=== PATIENT | female | born 2005 | race Caucasian/White ===

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

== ENCOUNTER 2025-01-26 11:30 | Outpatient (CLI) | payer OTHER, SELFPAY | END 2025-01-26 11:31 | disposition home or self-care (01) | LOC: NFLDREF 01-28 15:25 | PROVIDERS: PCP Family Medicine; Referring Provider Family Medicine; Visit Provider Obstetrics & Gynecology | DX: Z34.93 Encounter for supervision of normal pregnancy, unspecified, third trimester (principal) | CPT/HCPCS: 87081; 87653 ==

== ENCOUNTER 2025-01-27 17:23 | Outpatient (CLI) | payer OTHER, SELFPAY ==
[2025-01-27 17:43] VITALS: BP 120/80; PULSE 101
--- NOTE | 2025-01-27 18:39 | PC.OBNST ---
NST Note NST Note Start: 01/27/25 17:26 Freq: ONCE Status: Active Protocol: Document 01/27/25 18:38 POT (Rec: 01/27/25 18:39 POT No Response) NST Note 1 Para (# of births) 0 EDC 02/21/25 Gestational Age In 36 Weeks & 3 Days Weeks & Days Patient Presented Decreased movement with Complaint(s) of Reactive Yes RN Tad Chin RN Date 01/27/25 Reactive Yes URSULA Hernandez RN Date 01/27/25 OB NST charge Yes Complete NST Note Yes via Write Note The provider's electronic signature indicates the NST is reactive/appropriate for gestational age. *Note to provider: If an addendum is required, open the patient's chart and click on the note under the Nurse/Allied Health tab.
== END 2025-01-27 18:35 | disposition home or self-care (01) ==
LOC: OB OUT 17:24 → OB 17:25
PROVIDERS: PCP Family Medicine; Visit Provider Obstetrics & Gynecology
DX: O36.8130 Decreased fetal movements, third trimester, not applicable or unspecified (principal); Z3A.36 36 weeks gestation of pregnancy
CPT/HCPCS: 59025; G0463

== ENCOUNTER 2025-01-31 12:42 | Outpatient (CLI) | payer OTHER, SELFPAY ==
--- NOTE | 2025-01-31 13:00 | CRLHL7_ITS ---
For Patients: As a result of the Cures Act, medical imaging exams and procedure reports are released immediately into your electronic medical record. You may view this report before your referring provider. If you have questions, please contact your health care provider. OB ULTRASOUND INDICATION: Obesity. FLOYD by LMP: 02/21/2025. GA: 37 w, 0 d. Single. COMPARISON: US 12/28/2024. TECHNIQUE: Real time brooks scale imaging of the fetus was performed. Transabdominal imaging performed. CERVIX: Not visualized. POSITIONING: Vertex. AMNIOTIC FLUID: 4.9 cm. SDP (N: greater than 2 x 1 cm). BIOPHYSICAL PROFILE: Gross body movements: 2. tone: 2. Respiratory activity: 2. Amniotic fluid: 2. SDP (N: greater than 2 x 1 cm) Total score: 8. PLACENTA: Technique: Transabdominal. PLACENTA POSITION: Anterior. DOPPLER: heart rate: 123 bpm. IMPRESSION: Normal biophysical profile 12/03. Beck Contreras M.D. Diagnostic Radiologist [email or web address] [place]/Dictated by: Beck Contreras MD @ 01/31/2025 8:33:00 PM (Electronically Signed)
== END 2025-01-31 12:43 | disposition home or self-care (01) ==
LOC: US 12:43
PROVIDERS: PCP Family Medicine; Visit Provider Obstetrics & Gynecology
DX: O99.213 Obesity complicating pregnancy, third trimester (principal); Z3A.37 37 weeks gestation of pregnancy
CPT/HCPCS: 76819

== ENCOUNTER 2025-02-07 12:46 | Outpatient (CLI) | payer OTHER, SELFPAY ==
--- NOTE | 2025-02-07 13:00 | CRLHL7_ITS ---
For Patients: As a result of the Century Cures Act, medical imaging exams and procedure reports are released immediately into your electronic medical record. You may view this report before your referring provider. If you have questions, please contact your health care provider. LMP: 05/17/2024. FLOYD by LMP: 02/21/2025. GA: 38w, 0d. Single. Comparison: 01/31/2025, 12/28/2024. INDICATION: Obesity. CERVIX: Not visualized. POSITIONING: Vertex. AMNIOTIC FLUID: 5.9 cm SDP. BIOPHYSICAL PROFILE: Total score: 8. Gross body movements: 2. tone: 2. Respiratory activity: 2. Amniotic fluid: 2. (SDP N: Increase 2 x 1 cm) PLACENTA: Technique: Transabdominal. PLACENTA POSITION: Anterior. heart rate: 144 bpm. Umbilical artery: IMPRESSION: Normal biophysical profile 12/03. Beck Contreras M.D. Diagnostic Radiologist [email or web address] bM/Dictated by: Beck Contreras MD @ 02/07/2025 8:54:00 PM (Electronically Signed)
== END 2025-02-07 12:47 | disposition home or self-care (01) ==
LOC: US 12:46
PROVIDERS: PCP Family Medicine; Visit Provider Obstetrics & Gynecology
DX: O99.213 Obesity complicating pregnancy, third trimester (principal); Z3A.38 38 weeks gestation of pregnancy
CPT/HCPCS: 76819

== ENCOUNTER 2025-02-14 12:49 | Outpatient (CLI) | payer OTHER, SELFPAY ==
--- NOTE | 2025-02-14 13:00 | CRLHL7_ITS ---
For Patients: As a result of the Cures Act, medical imaging exams and procedure reports are released immediately into your electronic medical record. You may view this report before your referring provider. If you have questions, please contact your health care provider. OB ULTRASOUND FLOYD by LMP: 02/21/2025. GA: 39 w, 0 d. Single. INDICATION: Obesity. TECHNIQUE: Real time grayscale imaging of the fetus was performed. Transabdominal. CERVIX: Not visualized. POSITIONING: Vertex. AMNIOTIC FLUID: 5.0 cm. SDP (N: greater than 2 x 1 cm) BIOPHYSICAL PROFILE: 2: Gross body movements 2: tone 2: Respiratory activity 2: Amniotic fluid SDP (N: greater than 2 x 1 cm) 8/8: Total score PLACENTA: Technique: Transabdominal. PLACENTA POSITION: Anterior. DOPPLER: heart rate: 139 bpm. IMPRESSION: Normal biophysical profile score 8/8. Beck Contreras M.D. Diagnostic Radiologist [email or web address] [place]/Dictated by: Beck Contreras MD @ 02/14/2025 5:58:00 PM (Electronically Signed)
== END 2025-02-14 12:50 | disposition home or self-care (01) ==
LOC: US 12:50
PROVIDERS: PCP Family Medicine; Visit Provider Obstetrics & Gynecology
DX: O99.213 Obesity complicating pregnancy, third trimester (principal); Z3A.39 39 weeks gestation of pregnancy
CPT/HCPCS: 76819

== ENCOUNTER 2025-02-21 12:47 | Outpatient (CLI) | payer OTHER, SELFPAY ==
--- NOTE | 2025-02-21 13:00 | CRLHL7_ITS ---
For Patients: As a result of the Century Cures Act, medical imaging exams and procedure reports are released immediately into your electronic medical record. You may view this report before your referring provider. If you have questions, please contact your health care provider. FLOYD by LMP: 02/21/2025. GA: 40w, 0d. INDICATION: Obesity. CERVIX: Not visualized. POSITIONING: Vertex. AMNIOTIC FLUID: 5.8 cm SDP. BIOPHYSICAL PROFILE: Total score: 8. Gross body movements: 2. tone: 2. Respiratory activity: 2. Amniotic fluid: 2. (SDP N: Increase 2 x 1 cm) PLACENTA: Technique: Transabdominal. PLACENTA POSITION: Anterior. DOPPLER: heart rate: 157 bpm. IMPRESSION: Normal biophysical profile 12/03. Beck Contreras M.D. Diagnostic Radiologist [email or web address] bM/Dictated by: Beck Contreras MD @ 02/21/2025 4:02:00 PM (Electronically Signed)
== END 2025-02-21 12:48 | disposition home or self-care (01) ==
LOC: US 12:47
PROVIDERS: PCP Family Medicine; Visit Provider Obstetrics & Gynecology
DX: O99.213 Obesity complicating pregnancy, third trimester (principal); Z3A.40 40 weeks gestation of pregnancy
CPT/HCPCS: 76819

== ENCOUNTER 2025-02-24 19:12 | Inpatient (IN) | payer OTHER, SELFPAY ==
[2025-02-24 19:41] VITALS: BP 133/79; PULSE 115
[2025-02-24 19:42] VITALS: PULSE 117; O2SAT 97
[2025-02-24 19:53] VITALS: BMI 44.1
[2025-02-24 20:08] VITALS: RESP 16; TEMP 36.8
[2025-02-24 20:11] VITALS: PULSE 104; O2SAT 98
--- NOTE | 2025-02-24 21:41 | W.PM.LDBA ---
Subjective History of Present Illness Time Seen by Provider: 21:42 Date Seen: 02/24/25 Narrative: Patient is being admitted to Labor and Delivery for elective induction. She is a 19 year old at 40.3 weeks gestation. Her full history and physical was dictated by Dr. Daley on 01/31/25. Please see this for details. Active movement. Denies LOF, vaginal bleeding or abnormal vaginal discharge. Having more frequent contractions. Specific Issues/Plans Partner: Tavares Baby: Girl! Zee Black H&P: 01/31 # obesity, BMI 38.9 Hemoglobin A1c: 5.0% Aspirin 81 mg Weekly testing starting at 37 weeks 32 wk growth: EFW 89%ile, see below. # Tachycardia and palpitations - EKG 12/13 sinus tach - TSH normal, 1.08 [x] Zio is primarily NSR, sinus tachycardia and a single 8 beat run of SVT. [ ] Cardiology referral if recurrent Sx # Hep B nonimmune: low risk. Booster # Rh neg - Fetus RH positive Rhogam @ 28 weeks = 11/29/24 #Suspected macrosomia EFW >97% on FAS at 22 weeks, dated by LMP c/w 8 week US [x] 12/28: EFW 89%ile, see below. # Anemia at 28 weeks, with Hb 10.6 Recommended iron supplementation QOD Hb 11.5 on 01/10 Imaging: - FAS on 10/18: Normal visualized anatomy. EFW 593g at >97%ile - BPD 96%, HC 69%m, AC 91%, FL 73%. MVP 7.5cm. Cephalic. Anterior placenta, no previa. 3 vessel cord, central insertion. Cx 4.2cm. f/u formal radiology read. - 12/28: EFW 2292g at 89%ile - BPD 97%, HC 66%, AC 93%, FL 63%. MVP 7.5cm. Vertex, FHR 139bpm. Vaccinations: COVID:Declines Flu: N/A Tdap: 12/13/24 RSV: Offer at visit on 01/10/25. Declined. 32 week mental health: 12/28/24 Last pap: n/a OB - Problem Based A/P Additional Plan (1) Encounter for induction of labor: Status: Acute Plan - Patient requested misoprostol for cervical ripening. Will do 25 mcg misoprostol per protocol - Janneth is hoping to have an unmedicated - NST: 130 bpm, moderate variability, + accel, - decels - [place]: [id number] OB Exam Physical Exam Vital signs: Temp Pulse Resp BP Pulse Ox 98.2 F 115 H 16 133/79 98 02/24/25 20:08 02/24/25 19:41 02/24/25 20:08 02/24/25 19:41 02/24/25 20:11 Narrative: Physical exam: General: No acute distress Psych: Alert and oriented x3, full affect HEENT: Normocephalic, atraumatic Lungs: Unlabored breathing Neuro: No focal deficit. Mentating appropriately Pelvic exam: 2/70/-2, soft, posterior. BECERRA 6
[2025-02-24 22:10] VITALS: BP 123/78; PULSE 112
[2025-02-24 22:12] VITALS: PULSE 105; RESP 16; TEMP 36.7; O2SAT 98
[2025-02-24 23:02] LABS: Hematocrit* 37.8 % (33.0-51.0); Hemoglobin* 12.5 gm/dL (12.0-16.0); Immature Granulocytes Pct Auto 0.3 %; Mean Corpuscular HGB Conc 33 gm/dL (32-36); Mean Corpuscular Hemoglobin 27 pg (26-34); Mean Corpuscular Volume 81 fL (80-100); RDW Coefficient of Variation % 13.7 % (11.5-15.5); Red Blood Count* 4.65 m/uL (4.00-5.20); White Blood Count* 11.03 K/uL (4.50-11.00)
[2025-02-25] VITALS (132 sets, daily range): BP systolic 78–196; BP diastolic 40–139; PULSE 68–155; RESP 16–20; TEMP 36.6–36.9; O2SAT 88–100
[2025-02-25 00:26] LABS: Immature Granulocytes Abs Auto 0.00 K/uL (0.00-0.30); Lymphocytes Absolute Auto 2.60 K/uL (0.90-2.90)
[2025-02-25 00:27] LABS: Slide Review Reflex No
[2025-02-25] MEDS: ONDANSETRON 2 MG/ML inj 4 MG IV ×2 (02:23→08:12)
[2025-02-25] MEDS: LACTATED RINGERS 1000 ML 1,000 ML IV ×2 (03:30→05:00)
[2025-02-25] MEDS: LIDOCAINE 2% (PF) 5 ML VIAL EPIDURAL (04:26)
[2025-02-25] MEDS: ROPIVACAINE 0.2% 100 ml 100 ML 12 MG EPIDURAL (04:28)
--- NOTE | 2025-02-25 04:37 | PM.ANBPRC ---
PFSH PFS Surgical History (Updated 01/31/25 @ 14:04 by Kimberli Daley MD) [place] teeth extracted ?K08.409 - Partial loss of teeth, unspecified cause, unspecified class (ICD-10) Family History (Updated 01/31/25 @ 14:05 by Kimberli Daley MD) Maternal Grandmother High blood pressure Maternal Grandfather Heart disease Social History Narrative: Lives in [place] with and parents AND siblings (2). 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 SOCIAL HISTORY: Occupation: Did not indicate. Marital status: . Nondenominational/cultural needs: no. Chemical or radiation exposure: no. Pre- tobacco use: no. Pre- alcohol use: no. Current tobacco use: no. Current alcohol use: no. Recreational drug use: no. Dietary restrictions: no. Blood transfusion acceptable in an emergency: yes. PSYCHOSOCIAL HISTORY: History of depression or currently depressed: no. Current or past physical, emotional, or sexual mistreatment: no. Problems that will make it hard to make it to appointments: no. What is your current living situation?: I presently have a place to live Problems where you live: no known problems In the past 12 months, utilities in danger of being shut off: no In past 12 months, lack of transportation kept you from medical appts, meetings, work, or getting things needed for daily living: no In the past 12 mos, have been you worried that your food would run out before you had money to buy more?: never true In the past 12 mos, the food you bought just didn't last and you didn't have money to buy more?: never true Smoking Status: Never smoker How often does anyone, including family, friends and others, physically hurt you: never How often does anyone, including family, friends and others, insult or talk down to you: never How often does anyone, including family, friends and others, threaten you with harm: never How often does anyone, including family, friends and others, scream or curse at you: never Meds Home Medications and Allergies Home Medications ?Medication ?Instructions ?Recorded ?Confirmed ?Type DVA-fihl-KR-omega 3 fatty no.1 27 1 cap PO DAILY 08/12/24 02/24/25 History mg-1 mg-300 mg capsule aspirin 81 mg chewable tablet 81 mg PO QDAY 09/09/24 02/24/25 History loratadine 10 mg tablet (Claritin) 10 mg PO QDAY 09/09/24 02/24/25 History ferrous sulfate 325 mg (65 mg 325 mg PO Q OTHER DAY 01/10/25 02/24/25 History iron) tablet docusate sodium 100 mg capsule 100 mg PO QDAY 01/26/25 02/24/25 History calcium carbonate (Tums) 200 mg PO BID 02/21/25 02/24/25 History Allergies Allergy/AdvReac Type Severity Reaction Status Date / Time No Known Drug Allergies Allergy Verified 02/24/25 20:01 Results Labs Labs: Laboratory Results - last 24 hr 02/24/25 22:38 WBC 11.03 H RBC 4.65 Hgb 12.5 Hct 37.8 MCV 81 MCH 27 MCHC 33 RDW Coeff of Arpita 13.7 Plt Count 285 Neut % (Auto) 64.9 Lymph % (Auto) 23.9 [place] % (Auto) 10.1 Eos % (Auto) 0.6 Baso % (Auto) 0.2 Neut # (Auto) 7.20 H Lymph # (Auto) 2.60 [place] # (Auto) 1.10 H Eos # (Auto) 0.10 Baso # (Auto) 0.00 Abs Immat Gran (auto) 0.00 Imm/Tot Granulo (auto) 0.3 Blood Type A Negative Antibody Screen NEGATIVE Vital Signs Vital Signs: Last Vital Signs Temp 97.8 F 02/25/25 04:03 Pulse 136 H 02/25/25 04:36 Resp 20 02/25/25 04:03 BP 143/70 H 02/25/25 04:36 Pulse Ox 100 02/25/25 04:33 Weight: 113.171 kg Height: 160.02 cm Anesthesia Procedures Epidural Insertion Patient Location: OB Start Time: 04:00 Stop Time: 05:00 Start Date: 02/25/25 Stop Date: 02/18/25 Reason for Block: procedure for pain Patient Position: sitting Performed By: Flor Ferreira Preanesthetic Checklist: IV checked, risks and benefits discussed, monitors and equipment checked, pre-op evaluation, timeout performed and anesthesia consent Prep: chlorhexidine gluconate Monitoring: blood pressure monitoring, continuous pulse oximetry and heart rate Approach: midline Vertebral Space: lumbar (1-5) Epidural Technique: TY saline Needle Type: Tuohy needle Injection Technique: continuous catheter (continuous catheter) Needle gauge: 17 Needle Length (cm): 10 cm Needle Insertion Depth (cm): 10 Catheter Gauge: 19 Catheter Type: multi-orifice Catheter at skin depth (cm): 15 Test Dose Result: negative and lidocaine 1.5% with epinephrine 1 to 200,000
[2025-02-25] MEDS: PHENYLEPHRINE 100 MCG/ML SYRINGE IVP ×5 (04:40→11:05)
[2025-02-25] MEDS: ePHEDrine sulfate 5 MG/ML inj 10 MG IVP ×2 (05:20→06:08)
[2025-02-25] MEDS: TERBUTALINE 1 MG/ML INJ 0.25 MG SUBCUT (05:48)
--- NOTE | 2025-02-25 06:00 | PM.OBPNL ---
Subjective Date Seen: 02/25/25 Narrative: Informed by RN that patient is s/p only 1 dose of 25mcg of misoprostol @ 2205 and had been having strong consistent contractions since. SROM at 0015. Around 4am that patient is incredibly uncomfortable and refusing cervical exam until epidural was placed. Epidural placed soon after she requested. After she was comfortable, patient consented to cervical exam. Pt had an hour glassing forebag that descended down to the introitus. However, cervical and head were higher up. Patient consented to rupturing of forebag. Clear fluid expressed. Cat I strip until 443 when she started having variables that resolved with lateral decubitus positioning. Patinet had early decelerations with subsequent contractions. recovery in between contractions. Moderate variability throughout At 5:00 a.m. patient had a 3 minutes prolonged deceleration due to having 4 contractions continuously. Resolved with cessation of the contraction and repositioning. IV fluid bolus running. She has been hypotensive since epidural. Treated with phenylephrine x2. At 5:36 a.m. she had a 5 minute prolonged deceleration due to having 5 contractions on top of 1 another. Discussed with patient that she is tachysystolic which is causing decelerations. I recommended terbutaline to reset her contraction pattern and promote recovery. Patient consented to intervention. Terbutaline 0.25 mg given at 5:48 a.m. Shortly after receiving terbutaline, strict return to category 1 with a more normal contraction pattern, Q3-4 minutes. Of note, patient had my ranging blood pressures that were not 4 hours apart. However, there are two erroneously blood pressures in [place] that were taken during repositioning for resuscitation. 187/139, repeat was 92/47 196/132, repeat was 90/42 Sign out given the Dr. Tian who will be taking over call at 0700. Objective Vital Signs: Last Vital Signs Temp 97.8 F 02/25/25 04:03 Pulse 90 02/25/25 05:55 Resp 20 02/25/25 04:03 BP 90/42 L 02/25/25 05:55 Pulse Ox 97 02/25/25 06:00
[2025-02-25] MEDS: LACTATED RINGERS 1000 ML 1,000 ML 125 ML IV ×2 (07:11→08:18)
[2025-02-25] MEDS: OXYTOCIN 30 unit/500 ML in NS 30 UNIT/500 ML BAG 300 UNIT IVPB (10:32)
[2025-02-25] MEDS: CEFAZOLIN 2 GM INJ IVP (10:38)
--- NOTE | 2025-02-25 11:00 | W.PM.OBVAGDE ---
OB Procedure Vag Delivery Mother Details Mother Details: The patient is a 19 year-old, 1, Para 0, admitted on 02/24/25 at 40 3/7 weeks gestation. Patient admitted for elective IOL at term. Received one dose of Cytotec and progressed quickly, spontaneously ruptured membranes and progressed to complete this morning, pushing effectively. Had an episode of tachysystole and associated decelerations, received 1 dose of Terbutaline and with contractions spaced out, tracing remained category 1. Epidural was placed and also had episodes of hypotension that were treated. Maternal heart rate elevated but patient has remained asymptomatic w/o chest pain or SOB. : 1 Para: 1 Weeks Gestation: 40.4 Admission Date: 02/24/25 Additional Details Amniotic Membrane Status: SROM Amniotic Membrane Rupture Date: 02/24/25 Amniotic Membrane Fluid Description: Clear Analgesia/Anesthesia Type: Epidural Waterbirth: No Pitcoin: No Intrapartal Events: Labor Induction Induction Method: per misoprostol protocol Heart: heart tones during second stage were category 1. Delivery Details Delivery Date: 02/25/25 Delivery Time: 10:27 Route of delivery: Infant Gender: Female Viability: Alive; Heart Rate Present Position at Delivery: OA Delivery Details: Delivered via spontaneous vaginal delivery. Infant was placed on maternal abdomen.? Cord was clamped and cut after a 30-60 second delay. Nose and mouth were bulb suctioned.? Infant weight pending. Additional Details Shoulder Dystocia: No Placenta Delivery Time: 10:31 Placental Delivery Description: Spontaneous Delivery repair: Vicryl Procedure Done: Global Blood Loss: 400 Laceration: Perineal - 3rd Degree (3a) Episiotomy Description: None Blood Loss Measurement Type: QBL Bakri Used: No Sponge/Need Count Correct: Yes Cord Vessel Description: 3 Vessels Event Summary Status: Mother and were stable after delivery. Disposition: floor
[2025-02-25] MEDS: IBUPROFEN 600 MG TABLET PO ×2 (12:14→18:29)
[2025-02-25] MEDS: ACETAMINOPHEN 500 MG TABLET 1000 MG PO ×2 (15:13→22:05)
[2025-02-26 00:40] VITALS: BP 119/75; PULSE 88; RESP 18; TEMP 36.7; O2SAT 98
[2025-02-26] MEDS: IBUPROFEN 600 MG TABLET PO ×2 (00:46→06:49)
[2025-02-26] MEDS: ACETAMINOPHEN 500 MG TABLET 1000 MG PO (04:15)
[2025-02-26 04:18] VITALS: BP 111/78; PULSE 88; RESP 16; TEMP 36.6; O2SAT 98
[2025-02-26 06:50] LABS: Hemoglobin* 10.3 gm/dL (12.0-16.0)
--- NOTE | 2025-02-26 08:28 | P.OBPN_ITS ---
OB - PN:Subj Subjective Date Seen: 02/26/25 Interval history: Janneth is a 19-year-old G1 now P 1-0-0-1 woman who is status post normal spontaneous vaginal delivery on 02/25/2025 at 40 weeks, 4 days gestation. She gave to a female infant. She had a 3A perineal laceration, repaired with Vicryl. QBL was 400 mL. Her was in by/notable for: # BMI 38.9 and first-trimester # tachycardia and palpitations, with normal TSH and reassuring Zio patch testing # Rh negative status # Suspected macrosomia Review of her vital signs during her labor and course reveal several elevations of blood pressure in the mild range during her labor. She did have two severely elevated blood pressures that were noted to have been performed during repositioning in resuscitation and were inaccurate; repeats were low-normal. However, she again had an elevated blood pressure in the mild range last night. She has no complaints. She notes that she is sore in her arms and abdomen, but her perineal area is not bothering her. She is well. She is ambu lating and urinating without difficulty. She denies any heavy bleeding. OB - PN: Obj Exam Physical Exam: Vital signs: Temp Pulse Resp BP Pulse Ox O2 Del Method 97.9 F 88 16 111/78 98 Room Air 02/26/25 04:18 02/26/25 04:18 02/26/25 04:18 02/26/25 04:18 02/26/25 04:18 02/26/25 04:18 OB - PN: Obj Data Labs Labs: Laboratory Results - last 24 hr 02/25/25 02/26/25 15:26 06:20 Hgb 10.3 L Screen Negative HELLP labs this morning: Hemoglobin 10.7 (this was upon repeat), platelets 213 BUN 7, creatinine 0.6 AST 29, ALT 11 OB - PN: A/P Delivery Assessment and Plan (1) (normal spontaneous vaginal delivery): Status: Acute Assessment and Plan: Appropriate course. (2) Obstetric vaginal laceration with type 3a third degree perineal laceration: Status: Acute Assessment and Plan: I recommended Colace twice daily for 6 weeks, with addition of laxative such as Miralax if Colace alone is not effective in maintaining daily soft bowel movement. (3) Gestational hypertension: Status: Acute Assessment and Plan: Developing intrapartum. Currently without severe features. We discussed the possibility of increase in blood pressures that could require antihypertensives or even readmission in case of severe elevations or other indicators of severe disease. I favor continuation of inpatient status until tomorrow to assure that antihypertensives are not required. She will consider this and will let me know if she still desires early discharge today. Otherwise will plan for discharge tomorrow with early outpatient follow up of blood pressures. (4) Anemia: Status: Acute Assessment and Plan: Mild. Begin ferrous sulfate QOD. Plan day: 1 Plan: routine care
[2025-02-26 08:49] LABS: Hematocrit* 32.8 % (33.0-51.0); Hemoglobin* 10.7 gm/dL (12.0-16.0); Immature Granulocytes Abs Auto 0.03 K/uL (0.00-0.30); Immature Granulocytes Pct Auto 0.3 %; Lymphocytes Absolute Auto 2.49 K/uL (0.90-2.90); Mean Corpuscular HGB Conc 33 gm/dL (32-36); Mean Corpuscular Hemoglobin 27 pg (26-34); Mean Corpuscular Volume 83 fL (80-100); RDW Coefficient of Variation % 13.9 % (11.5-15.5); Red Blood Count* 3.94 m/uL (4.00-5.20); White Blood Count* 10.18 K/uL (4.50-11.00)
[2025-02-26 08:53] LABS: Slide Review Reflex No
[2025-02-26 08:55] VITALS: BP 109/74; PULSE 83; RESP 16; TEMP 36.5; O2SAT 96
[2025-02-26] MEDS: DOCUSATE SODIUM 100 MG CAPSULE PO (08:59)
[2025-02-26 09:04] LABS: Alanine Aminotransferase* 11 U/L (4-35); Aspartate Amino Transferase* 29 U/L (12-35); Blood Urea Nitrogen* 7 mg/dL (5-24); Creatinine* 0.6 mg/dL (0.6-1.2); Est. Creatinine Clearance* 124.75; Estimated Glomerular Filt Rate 133 ml/min
[2025-02-26 12:13] VITALS: BP 117/82; PULSE 84; RESP 16; TEMP 36.5; O2SAT 98
--- NOTE | 2025-02-26 14:40 | P.DS_ITS ---
DS: Providers Provider Date Seen: 02/26/25 Date of admission: 02/24/25 19:12 Primary care physician: Christianne Gardner MD Admitting Clinician: Sharon Ordonez MD Attending Physician on discharge: Kimberli Daley MD Date of Discharge: 02/26/25 DS: Diagnosis Discharge Diagnosis (1) Anemia: Status: Acute (2) Gestational hypertension: Status: Acute (3) Obstetric vaginal laceration with type 3a third degree perineal laceration: Status: Acute (4) (normal spontaneous vaginal delivery): Status: Acute Exam Narrative: Exam Narrative: see today's progress note; normal exam Const: Vital Signs, click to edit/add: Vital Signs - 24 hr 02/25/25 17:00 02/25/25 21:33 02/25/25 21:59 Temperature 98 F 98.4 F Pulse Rate [Pulse Oximeter] 108 H 88 Respiratory Rate 16 18 Blood Pressure [Le ft Arm] 126/75 121/96 H 130/85 Pulse Oximetry 97 98 Oxygen Delivery Me thod Room Air Room Air 02/26/25 00:40 02/26/25 04:18 02/26/25 08:55 Temperature 98.1 F 97.9 F 97.7 F Pulse Rate [Pulse Oximeter] 88 88 83 Respiratory Rate 18 16 16 Blood Pressure [Le ft Arm] 119/75 111/78 109/74 Pulse Oximetry 98 98 96 Oxygen Delivery Me thod Room Air Room Air 02/26/25 12:13 Temperature 97.7 F Pulse Rate [Pulse Oximeter] 84 Respiratory Rate 16 Blood Pressure [Le ft Arm] 117/82 Pulse Oximetry 98 Oxygen Delivery Me thod Room Air OB - DS: Summary Hospital Course Hospital Course: josh is a 19-year-old G1 now P 1-0-0-1 woman who is status post normal spontaneous vaginal delivery on 02/25/2025 at 40 weeks, 4 days gestation. She gave to a female infant. She had a 3A perineal laceration, repaired with Vicryl. QBL was 400 mL. Her was in by/notable for: # BMI 38.9 and first-trimester # tachycardia and palpitations, with normal TSH and reassuring Zio patch testing # Rh negative status # Suspected macrosomia She had several mildly elevated blood pressures during her labor course. She did have two severely elevated blood pressures that were noted to have been performed during repositioning in resuscitation and were inaccurate; repeats were low-normal. She had one elevated blood pressure in the mild range during her course. HELLP labs were normal on PPD #1. She requested early discharge on PPD#1. We discussed the risk of readmission should blood pressures become elevated as an outpatient. She was discharged without any antihypertensive medication. She is well. Infant Gender: Female Time Spent with Patient Time attestation: Total time spent providing and/or coordinating discharge services: Discharge Plan Discharge Disposition: Home, Self-Care Date of Admission: 02/24/25 19:12 Attending Provider on Discharge: Kimberli Daley Primary Care Provider: Christianne Gardner Condition: Stable Anticipated Discharge Date/Time: 02/26/25 14:48 Discharge Medications: New acetaminophen 500 mg Tablet 1,000 mg PO Q6H PRNQty: 0 0RF docusate sodium 100 mg Capsule 100 mg PO BID Qty: 0 0RF ibuprofen 600 mg Tablet 600 mg PO Q6H PRNQty: 0 0RF Lanolin (HPA) 100 % Cream 1 applic topical Q1H PRNQty: 0 0RF Continued MRQ-gmey-PG-omega 3 fatty no.1 27-1-300 mg capsule 1 cap PO DAILY loratadine [Claritin] 10 mg tablet 10 mg PO QDAY calcium carbonate [Tums] 200 mg calcium (500 mg) tablet,chewable 200 mg PO BID ferrous sulfate 325 mg (65 mg iron) tablet 325 mg PO Q OTHER DAY Discontinued aspirin 81 mg tablet,chewable 81 mg PO QDAY docusate sodium 100 mg capsule 100 mg PO QDAY Discharge Orders: Discharge Order (Routine); Ordered 02/26/25 Ordered By: Kimberli Daley Patient Education: OB High Blood Pressure DC, OB Over the Counter Medication Information, OB Vaginal/Breast Feeding Additional Instructions: Call with blood pressures 140/90 or greater. Activity Level: No Restrictions Discharge Diet: Regular Follow Up Appointments: Christianne Gardner MD [Primary Care Provider, Family Practice] [facility] [Provider Group] Forms: Proximal Datath Info Instructions Discharge Comments: Return to clinic within 5 days for blood pressure check with RN. Return to clinic at 2 and 6 weeks .
== END 2025-02-26 16:00 | disposition home or self-care (01) | DRG 768 ==
PROVIDERS: Obstetrics & Gynecology; Admitting Provider Obstetrics & Gynecology; PCP Family Medicine; Visit Provider Obstetrics & Gynecology
DX: O99.214 Obesity complicating childbirth (principal); Z37.0 Single live birth; O13.4 Gestational [pregnancy-induced] hypertension without significant proteinuria, complicating childbirth; O99.892 Other specified diseases and conditions complicating childbirth; R00.0 Tachycardia, unspecified; I95.89 Other hypotension; O99.02 Anemia complicating childbirth; D64.9 Anemia, unspecified; O70.21 Third degree perineal laceration during delivery, IIIa; O26.893 Other specified pregnancy related conditions, third trimester; Z67.11 Type A blood, Rh negative; Z3A.40 40 weeks gestation of pregnancy
CPT/HCPCS: 01967; 36415; 36430; 59200; 82565; 84450; 84460; 84520; 85018; 85025; 85461; 86592; 86850; 86900; 86901; A9270; J0690; J2405; J2791; J2795; J3010; J3105; J7120

== ENCOUNTER 2025-03-18 14:26 | Outpatient (CLI) | payer OTHER, SELFPAY ==
--- NOTE | 2025-03-18 16:07 | W.PM.LAC.MC ---
Consult Note - Mom Date of Visit Date of visit: 03/18/25 Reason for consultation: Assistance Needed Visit Code: Visit (pumping and bottling, would like to latch baby for BF but has been painful) Patient's Information Phone number: [phone] : 1 Para: 1 Allergies No Known Drug Allergies Allergy (Verified 02/24/25 20:01) Delivery Information Delivery type: Vaginal Gestational Age: 40+4 Gestational Weight For Age: AGA Weight: 3.77 kg Discharge Weight: 3.535 kg Baby's Information Baby's Age at Visit: 3 weeks Baby's Provider or Clinic: [facility] Jaundice: No Past Experience Past Experience: No Current Frequency of Day Feedings: every 3 hrs Frequency of Night Feedings: 4-5 hr stretch Both Breasts: No Latch: pinchy so not BF Pumping Pumping: Yes Quantity Pumped: 14 oz in AM, then 4-6 oz most pumps thru the day; 50-60 oz total in 24 hrs Supplementing EBM Supplement: Yes (takes 3-4 oz ea feeding) Formula Supplement: No Baby Elimination Number of Wet Diapers a Day: ea feeding Number of BM a Day: several/day Breast/Nipple Condition Breast Information: Breasts are symmetrical with rounded lower quadrants, intramammary distance is less than 1.5 inches. No erythema. Nipples are supple, everted prior to feeding. Nipples measure 20mm bilaterally Breast Shape: Round and Pendulous Engorgement: No Maternal Nipple Condition - Left: Common Nipple Maternal Nipple Condition - Right: Common Nipple Sore Nipples: Yes Interventions for Sore Nipples: Lansinoh/Nipple Cream and Other (silverettes) Baby Assessment Skin: Normal Tongue/frenulum: Normal/elastic Palate: Average Lips: Relaxed and Symmetrical Jaw Alignment: Symmetrical Mucosa: [place], moist Onsite Observation Pre-Feed weight: 4.012 kg Post-Feed weight: 4.136 kg Milk Transferred (mL): 124 Position: Cross cradle and Football Attachment/latch-on achieved: With difficulty (to keep deep latch but able to accomplish and not painful for mom) Suck pattern: Suck burst and normal rest Swallow: Audible, consistent and Gulping Behavior following feed: Alert, content Pre-Nursing Left Nipple: Within Normal Limits Pre-Nursing Right Nipple: Within Normal Limits Post-Nursing Left Nipple: Within Normal Limits Post-Nursing Right Nipple: Within Normal Limits Assessments/Interventions Assessments/Interventions: Penny latched to mom's left breast, latched well but needed some coaxing to get wide open mouth and to stay latched. and stayed nursing for 18 minutes. Transferred 70 ml of milk Penny then latched to mom's right breast, latched first in cross cradle and then football hold to try other options and nursed for another 14 minutes. Transferred 54 ml of milk Total volume of 124 ml Used a rolled up towel to help mom support her breast to allow baby a deeper latch Also tried football hold which mom found helpful and baby stayed latched more deeply without coming off the breast Mom able to verbalize this nursing was much less painful than she has experienced so far. Education provided: Early feeding cues to maximize timing of latching, Asymmetric latch technique for wide/deep latch to increase milk, Transfer for baby and increase comfort for mom (needs lips flanged and more breast tissue in mouth to prevent soreness for mom), Supply/demand nature of milk supply, Sore nipple treatment options (alternate cream with silverettes vs using at the same time), Alternative feeding methods (SNS, cup, finger feeding, bottling), Pumping for milk management (may need to slowly wean down on pumping to allow her body to adjust to new need if baby latches more frequently) and Milk collection, storage Follow-Up Suggested follow up: Appointment as needed Time Spent Time spent with patient (min): 75 Meds Home Medications and Allergies Home Medications ?Medication ?Instructions ?Recorded ?Confirmed ?Type USQ-nfls-ZB-omega 3 fatty no.1 27 1 cap PO DAILY 08/12/24 02/24/25 History mg-1 mg-300 mg capsule loratadine 10 mg tablet (Claritin) 10 mg PO QDAY 09/09/24 02/24/25 History ferrous sulfate 325 mg (65 mg 325 mg PO Q OTHER DAY 01/10/25 02/24/25 History iron) tablet calcium carbonate (Tums) 200 mg PO BID 02/21/25 02/24/25 History acetaminophen 500 mg tablet 1,000 mg (2 x 500 mg) PO Q6H PRN 02/26/25 Rx #0 tabs docusate sodium 100 mg capsule 100 mg PO BID #0 caps 11/01/25 Rx ibuprofen 600 mg tablet 600 mg PO Q6H PRN #0 tabs 02/26/25 Rx modified lanolin 100 % topical 1 applic topical Q1H PRN #0 grams 02/26/25 Rx cream (Lanolin (HPA)) Allergies Allergy/AdvReac Type Severity Reaction Status Date / Time No Known Drug Allergies Allergy Verified 02/24/25 20:01
== END 2025-03-18 14:27 | disposition home or self-care (01) ==
LOC: OB LAC 14:26
PROVIDERS: PCP Family Medicine; Visit Provider Obstetrics & Gynecology
DX: Z39.1 Encounter for care and examination of lactating mother (principal)
CPT/HCPCS: G0463